=== PATIENT | female | born 2000 | race Caucasian/White ===

== ENCOUNTER 2020-07-27 15:20 | Inpatient (IN) | payer MEDICAID, SELFPAY ==
[~2020-07-27] VITALS: Ht 162.6 cm; Wt 69.4 kg
[2020-07-27 16:53] VITALS: BP 129/68
[2020-07-27] MEDS ORDERED: CARBOPROST 250 MCG/ML AMP IM PRN (17:35)
[2020-07-27] MEDS ORDERED: AMPICILLIN 2,000 MG in NACL 0.9% MINI-BAG PLUS 100 ML IV SCH (17:35)
[2020-07-27] MEDS ORDERED: METHYLERGONOVINE 0.2 MG/ML AMP IM PRN (17:35)
[2020-07-27] MEDS ORDERED: OXYTOCIN 10 UNITS/ML VIAL IM SCH (17:35)
[2020-07-27 18:02] LABS: APPEARANCE,URINE CLEAR (CLEAR); BILIRUBIN,URINE NEGATIVE (NEGATIVE); BLOOD, URINE NEGATIVE (NEGATIVE); COLOR,URINE YELLOW (YELLOW); LEUKOCYTE ESTERASE ,URINE 1+ (NEGATIVE); NITRITE, URINE NEGATIVE (NEGATIVE); UGLUCOSE NEGATIVE (NEGATIVE)
[2020-07-27 18:02] LABS: BASOPHILS # (AUTO) 0.1 K/uL (0.00-0.22); BASOPHILS % (AUTO) 0.4 % (0.0-2.0); EOSINOPHILS % (AUTO) 0.2 % (0.0-4.0); HEMATOCRIT 36.1 % (36-48); LYMPHOCYTES # (AUTO) 2.1 K/uL (2.5-16.5); LYMPHOCYTES % (AUTO) 14.4 % (20.5-51.1); MEAN CORPUSCULAR HEMOGLOBIN 27 pg (27-31); MEAN CORPUSCULAR HGB CONC 33 g/dL (33-37); MEAN CORPUSCULAR VOLUME 80.5 fL (80-94); MONOCYTES # (AUTO) 0.9 K/uL (0.8-1.0); MONOCYTES % (AUTO) 6.4 % (1.7-9.3); NEUTROPHILS # (AUTO) 11.3 K/uL (1.8-7.7); NEUTROPHILS % (AUTO) 78.6 % (42.2-75.2); PLATELET COUNT (AUTO) 351 K/uL (140-450); RED BLOOD CELL COUNT(AUTO) 4.49 MIL/uL (4.20-5.40); RED CELL DISTRIBUTION WIDTH 13.9 % (11.6-13.7); WHITE BLOOD COUNT (AUTO) 14.3 K/uL (4.5-11.0)
[2020-07-27 18:13] LABS: BARBITURATE, URINE NEGATIVE ng/ml (NEG <=200); BENZODIAZEPINE, URINE NEGATIVE ng/mL (NEG <=200); CANNABINOID, URINE NEGATIVE ng/mL (NEG <=50); COCAINE, URINE NEGATIVE ng/mL (NEG <=300); OPIATE, URINE NEGATIVE ng/mL (NEG <=2000); PHENCYCLIDINE SCREEN,URINE NEGATIVE ng/mL (NEG <=25)
[2020-07-27 18:37] LABS: ALBUMIN 3.2 g/dL (3.4-5.0); ANION GAP 14.3 (8-16); CARBON DIOXIDE 24.3 mmol/L (21-32); CREATININE 0.8 mg/dL (0.6-1.3); POTASSIUM 3.6 mmol/L (3.5-5.1); TOTAL BILIRUBIN 0.7 mg/dL (0.0-1.0)
[2020-07-27 19:17] LABS: YEAST,URINE Few /HPF (None Seen)
[2020-07-27] MEDS: LACTATED RINGERS 1,000 ML IV SCH (19:56)
[2020-07-27] MEDS ORDERED: AMPICILLIN 1,000 MG in NACL 0.9% MINI-BAG PLUS 50 ML IV SCH (20:00)
[2020-07-27] MEDS ORDERED: AMPICILLIN 2,000 MG VIAL ONE (20:27)
[2020-07-27] MEDS ORDERED: MISOPROSTOL 25 MCG TAB VG PRN (21:05)
[2020-07-27] MEDS ORDERED: NALBUPHINE 10 MG/ML AMP IVP PRN (21:20)
[2020-07-27] MEDS ORDERED: PROMETHAZINE 25 MG/ML VIAL IVP PRN (21:20)
[2020-07-27] MEDS ORDERED: MISOPROSTOL 25 MCG TAB ONE (21:26)
[2020-07-28] MEDS ORDERED: AMPICILLIN 1,000 MG VIAL ONE (00:17)
[2020-07-28] MEDS: LACTATED RINGERS 1,000 ML IV SCH (00:58)
[2020-07-28] MEDS ORDERED: OXYTOCIN 20 UNITS/LR PREMIX 1,000 ML IV ONE (01:20)
[2020-07-28] MEDS ORDERED: LIDOCAINE 1% 500 MG/50 ML VIAL ONE (02:08)
[2020-07-28] MEDS ORDERED: TEMAZEPAM 15 MG CAP PO PRN (02:30)
[2020-07-28] MEDS ORDERED: METHYLERGONOVINE 0.2 MG/ML AMP IM PRN (02:30)
[2020-07-28] MEDS ORDERED: MEASLES, MUMPS, AND RUBELLA 1 VIAL SQVAC ONE (02:30)
[2020-07-28] MEDS ORDERED: BENZOCAINE/MENTHOL 20%-0.5% 60 GM CAN TP PRN (02:30)
[2020-07-28] MEDS ORDERED: oxyCODONE/APAP 5/325 MG 1 TAB TAB PO PRN (02:30)
[2020-07-28] MEDS ORDERED: METHYLERGONOVINE 0.2 MG TAB PO PRN (02:30)
[2020-07-28] MEDS ORDERED: IBUPROFEN 800 MG TAB PO PRN (02:30)
[2020-07-28] MEDS ORDERED: OXYTOCIN 10 UNITS/ML VIAL IM PRN (02:30)
--- NOTE | 2020-07-28 06:45 | NUR ---
PATIENT HAS BEEN SCREENED AND CATEGORIZED LOW NUTRITION RISK. PATIENT WILL BE SEEN WITHIN 7 DAYS OF ADMISSION. 08/04/20 HATTIE REED MS, RDN
[2020-07-28] MEDS ORDERED: DOCUSATE SOD/SENNA 50/8.6 MG 1 TAB PO SCH (21:00)
[2020-07-29] MEDS ORDERED: DOCUSATE SOD/SENNA 50/8.6 MG 1 TAB PO SCH (09:10)
== END 2020-07-29 13:45 | disposition home or self-care (01) | DRG 807 ==
LOC: MLD 15:20 → OBSVTOIN 17:31 → MFCC 07-28 03:50
PROVIDERS: ADMIT Obstetrics & Gynecology; ATTEND Obstetrics & Gynecology
PROC: 10E0XZZ Delivery of Products of Conception, External Approach (ICD-10-PCS; principal; 2020-07-27)
PROC: 0HQ9XZZ Repair Perineum Skin, External Approach (ICD-10-PCS; 2020-07-27)
PROC: 3E033VJ Introduction of Other Hormone into Peripheral Vein, Percutaneous Approach (ICD-10-PCS; 2020-07-27)
PROC: 3E0D7GC Introduction of Other Therapeutic Substance into Mouth and Pharynx, Via Natural or Artificial Opening (ICD-10-PCS; 2020-07-27)
DX: O69.81X0 Labor and delivery complicated by cord around neck, without compression, not applicable or unspecified (principal); Z37.0 Single live birth; O70.0 First degree perineal laceration during delivery; O42.92 Full-term premature rupture of membranes, unspecified as to length of time between rupture and onset of labor; Z3A.39 39 weeks gestation of pregnancy
CPT/HCPCS: 36415; 76805; 80053; 80305; 81001; 85018; 85025; 86592; 86762; 86886; 86900; 86901; 87086; 87340; 87653-90; G0378; J0290; J2001; J2300; J2550; J2590